=== PATIENT | male | born 1950 | race Caucasian/White ===

== ENCOUNTER → 2019-05-18 | Outpatient (CLI) | payer MEDICARE ==
--- NOTE | 2019-05-18 13:12 | Diagnostic Imaging Report ---
Renal ultrasound, 05/18/2019. History: Acute renal failure. Discussion: Transverse and longitudinal images of the kidneys were obtained demonstrating normal renal sizes and echogenicities. There is no evidence of hydronephrosis, mass, or shadowing renal calculus. 4 to 5 mm nonshadowing echogenic foci are present within the central portions of both kidneys. Oval anechoic structures are present bilaterally, one in the lateral aspect of the right kidney measuring 2.1 x 1.9 x 2.5 cm and 2 in the left upper pole measuring 2.6 x 1.5 x 1.7 cm and 1.4 x 1.1 x 1.4 cm. The right kidney measures 10.2 cm and the left kidney measures 10.9 cm in length. Renal cortex measures 1.5 and 2.1 cm respectively. The urinary bladder is unremarkable. Bilateral ureteral jets are identified. Bladder volume measures 40 mL. There is no evidence of free fluid. IMPRESSION: 1. Bilateral simple renal cysts. 2. Possible small nonobstructing bilateral renal calculi. Signed by: Edgar Vaughan on 05/18/2019 1:08 PM
== END ==
LOC: US 12:14
PROVIDERS: ATTEND Urology
DX: R39.14 Feeling of incomplete bladder emptying (principal); N17.9 Acute kidney failure, unspecified
CPT/HCPCS: 76770

== ENCOUNTER → 2019-07-12 | Outpatient (CLI) | payer MEDICARE ==
--- NOTE | 2019-07-12 14:57 | Diagnostic Imaging Report ---
Abdomen, 1 view. History: Renal calculus. Findings: Air is scattered throughout nondilated small and large bowel. A 5 mm calcific density projected over the lower pole of the left kidney. Surgical clips are noted in the right lower quadrant abdomen. Advanced degenerative changes are noted throughout the lumbar spine. IMPRESSION: Non-specific bowel gas pattern. Possible small left renal callus. Signed by: Edgar Vaughan on 07/12/2019 2:54 PM
== END ==
LOC: RAD 13:22
PROVIDERS: ATTEND Urology
DX: N20.0 Calculus of kidney (principal)
CPT/HCPCS: 74018

== ENCOUNTER → 2019-07-27 | Outpatient (CLI) | payer MEDICARE ==
--- NOTE | 2019-07-27 10:04 | Diagnostic Imaging Report ---
EXAMINATION: CT of the abdomen and pelvis without contrast. TECHNIQUE: Spiral CT images of the abdomen and pelvis were performed from the lung bases to the lesser trochanters. No intravenous contrast was given per renal stone protocol. Coronal and sagittal reformatted images were obtained. COMPARISON: Abdominal x-ray 07/12/2019 CLINICAL HISTORY:Renal calculus DISCUSSION: ABSENCE OF INTRAVENOUS CONTRAST DECREASES SENSITIVITY FOR DETECTION OF FOCAL LESIONS AND VASCULAR PATHOLOGY. ABDOMEN/PELVIS: LOWER THORAX: Groundglass and reticular opacities in the dependent lower lobes compatible with subsegmental atelectasis or mild age-related fibrotic changes. HEPATOBILIARY:No focal hepatic lesions. No biliary ductal dilation. The gallbladder is normal. SPLEEN: No splenomegaly. PANCREAS: No focal masses or ductal dilatation. ADRENALS: No adrenal nodules. KIDNEYS/URETERS: Bilateral renal cysts are identified as seen on comparison renal ultrasound. 3 mm right renal cortical calcification. 5-6 mm nonobstructing left lower pole calculus confirms plain radiographic finding. Additional punctate calculus in the interpolar left kidney seen on series 3 image 64. No hydronephrosis. No ureteral or bladder calculi. PELVIC ORGANS/BLADDER: Urinary bladder, prostate, and seminal vesicles appear normal. PERITONEUM/RETROPERITONEUM: No free air or fluid. LYMPH NODES: No pelvic sidewall, retroperitoneal, or mesenteric lymphadenopathy. VESSELS: Limited evaluation without intravenous contrast. Atherosclerotic calcification of the abdominal aorta, iliac arterial systems, and major visceral branches without aneurysmal dilatation. GI TRACT: The large bowel shows no distention or wall thickening. Gas and fecal material are noted throughout. Postsurgical changes of appendectomy. The stomach is collapsed with prominent rugal folds. No small bowel dilatation to suggest obstruction. BONES AND SOFT TISSUES: Disproportionate atrophy/fatty replacement of the left gluteus musculature in the setting of advanced multilevel degenerative disc changes and facet arthropathy of the lumbar spine. IMPRESSION: Nonobstructing left renal calculi measuring up to 5-6 mm. Bilateral renal cysts as seen on comparison ultrasound. Atherosclerotic vascular disease. Signed by: Dr. Janes Chavira M.D. on 07/27/2019 10:01 AM
== END ==
LOC: CT 08:21
PROVIDERS: ATTEND Urology
DX: N20.0 Calculus of kidney (principal)
CPT/HCPCS: 74176

== ENCOUNTER → 2019-09-29 | Day surgery (SDC) | payer MEDICARE ==
[2019-09-27 12:27] LABS: BASOPHILS # (AUTO) 0.1 (0.0-0.1); BASOPHILS % 0.5 % (0.0-1.0); EOSINOPHILS # (AUTO) 0.1 (0.0-0.4); EOSINOPHILS % 1.1 % (0.0-6.0); HEMATOCRIT 53.6 % (38.2-49.6); HEMOGLOBIN 17.7 g/dL (14.0-18.0); LYMPHOCYTES # (AUTO) 2.3 (1.0-3.2); LYMPHOCYTES % 23.1 % (18.0-39.1); MEAN CORPUSCULAR HEMOGLOBIN 29.2 pg (28-32); MEAN CORPUSCULAR VOLUME 88.4 fL (81-99); MONOCYTES # (AUTO) 0.9 (0.2-0.8); MONOCYTES % 8.4 % (4.4-11.3); NEUTROPHILS # (AUTO) 6.7 (2.1-6.9); NEUTROPHILS % 66.1 % (38.7-80.0); PLATELET COUNT 225 x10e3/uL (140-360); RED BLOOD COUNT 6.06 x10e6/uL (4.3-5.7); RED CELL DISTRIBUTION WIDTH 17.5 % (11.7-14.4)
[2019-09-27 12:57] LABS: ANION GAP 18.2 mmol/L (8-16); BLOOD UREA NITROGEN 17 mg/dL (7-26); BUN/CREATININE RATIO 15 (6-25); CALCIUM 9.3 mg/dL (8.4-10.2); CARBON DIOXIDE 19 mmol/L (22-29); CHLORIDE 104 mmol/L (98-107); CREATININE, SERUM 1.14 mg/dL (0.72-1.25); EST GLOMERULAR FILTRATION RATE > 60 ML/MIN (60-); GLUCOSE 90 mg/dL (74-118); POTASSIUM 4.2 mmol/L (3.5-5.1); SODIUM 137 mmol/L (136-145)
--- NOTE | 2019-09-27 13:09 | Diagnostic Imaging Report ---
EXAMINATION: CHEST 2 VIEWS INDICATION: ^PREOP ^20190927 ^1220 COMPARISON: None FINDINGS: PA and lateral views TUBES and LINES: None. LUNGS: Lungs are well inflated. 6 mm nodule of the right midlung consistent with a calcified granuloma. The lungs are otherwise clear. There is no evidence of pneumonia or pulmonary edema. PLEURA: No pleural effusion or pneumothorax. HEART AND MEDIASTINUM: The cardiomediastinal silhouette is unremarkable. BONES AND SOFT TISSUES: No acute osseous lesion. Soft tissues are unremarkable. UPPER ABDOMEN: No free air under the diaphragm. IMPRESSION: No acute thoracic radiographic abnormality. Signed by: Micha Rivera MD on 09/27/2019 1:07 PM
--- NOTE | 2019-09-27 13:10 | Diagnostic Imaging Report ---
EXAM: Abdomen Radiograph 1 View(s) INDICATION: ^PREOP ^20190927 ^1220 COMPARISON: None FINDINGS: The bowel gas pattern is nonspecific. 5 mm calculus of the left renal lower pole. Advanced lobar spine degenerative change. Right hemipelvis surgical clips. IMPRESSION: 5 mm left renal lower pole calculus. Nonobstructive bowel gas pattern. Signed by: Micha Rivera MD on 09/27/2019 1:08 PM
[~2019-09-29] MED LIST: ALEVE220 M1 PO; B&O 60MG R/S 60 MG SUPP PR ONE; CEFTRIAXONE SOD 1 GM/NS 50 ML 50 ML IV ONE; DEXAMETHASONE SOD PHOS INJ 4 MG/ML VIAL ONE; FENTANYL CITRATE/PF 100MCG/2 ML INJ ONE; GABAPENTIN300 MG PO; IOPAMIDOL 300MG/ML 50ML INFUS..BTL IV ONE; LIDOCAINE HCL 2% LOCAL INJ 5 ML SDV VIAL INJ ONE; LISINOPRIL-HCT1 EAC1 PO; MIDAZOLAM HCL 2 MG/2 ML VIAL ONE; ONDANSETRON HCL INJ 2MG/ML 2ML 2 MG/ML VIAL ONE; PROPOFOL IV EMULSION 10 MG/ML 20 ML VIAL ONE; SEVOFLURANE INHAL SOLN 250 ML PEN BTL ONE; TESTOSTERO100 MG/1 M IM; ULTRAM50 MG PO; ZETIA10 MG PO
--- OUTSIDE RECORDS SUMMARY | 2019-09-29 06:50 | XMS REPORT ---
Author [facility] Address Unknown Phone Unavailable Care Team Providers Care Ampoule Inspector Name Role Phone CARISA PILLAI Unavailable Unavailable Problems This patient has no known problems. Allergies, Adverse Reactions, Alerts This patient has no known allergies or adverse reactions. Medications This patient has no known medications. Results Test Description Test Time Test Comments Text Results Atomic Results Result Comments ABDOMEN-1VIEW ([facility]U) 2019-09-27 13:07:00 [place] [address] Patient Name: KATHRINE CASAS MR #: [id number] : 1950 Age/Sex: 68/M Req #: [id number] Adm Physician: Ordered by: CARISA PILLAI MD Report #: [id number] Location: OR Room/Bed: Procedure: [id number] DX/ABDOMEN-1VIEW ([facility]) Exam Date: 09/27/19 Exam Time: 1220 REPORT STATUS: Signed EXAM: Abdomen Radiograph 1 View(s) INDICATION: PREOP [id number] 122 COMPARISON: None FINDINGS: The bowel gas pattern is nonspecific. 5 mm calculus of the left renal lower pole. Advanced lobar spine degenerative change. Right hemipelvis surgical clips. IMPRESSION: 5 mm left renal lower pole calculus. Nonobstructive bowel gas pattern. Signed by: Richardson Sutton MD on 09/27/2019 1:08 PM Dictated By: RICHARDSON SUTTON MD 1308 Transcribed By: ROCHELLE on 09/27/191307 COPY TO: CARISA PILLAI MD CHEST 2 VIEWS 2019-09-27 13:06:00 [facility] [address] [address] Patient Name: KATHRINE CASAS MR #: [id number] : 1950 Age/Sex: 68/M Req #: [id number] Adm Physician: Ordered by: CARISA PILLAI MD Report #: [id number] Location: OR Room/Bed: Procedure: [id number] DX/CHEST 2 VIEWS Exam Date: 09/27/19 Exam Time: 1220 REPORT STATUS: Signed EXAMINATION: CHEST 2 VIEWS INDICATION: PREOP [id number] 1220 COMPARISON: None FINDINGS: PA and lateral views TUBES and LINES: None. LUNGS: Lungs are well inflated. 6 mm nodule of the right midlung consistent with a calcified granuloma. The lungs are otherwise clear. There is no evidence of pneumonia or pulmonary edema. PLEURA: No pleural effusion or pneumothorax. HEART AND MEDIASTINUM: The cardiomediastinal silhouette is unremarkable. BONES AND SOFT TISSUES: No acute osseous lesion. Soft tissues are unremarkable. UPPER ABDOMEN: No free air under the diaphragm. IMPRESSION: No acute thoracic radiographic abnormality. Signed by: Richardson Sutton MD on 09/27/2019 1:07 PM Dictated By: RICHARDSON SUTTON MD 1307 Transcribed By: ROCHELLE on 09/27/19 130 COPY TO: CARISA PILLAI MD CT ABDOMEN/PELVIS WO 2019-07-27 09:52:00 [facility] [address] [address] Patient Name: KATHRINE CASAS MR #: [id number] : 1950 Age/Sex: 68/M Req #: [id number] Adm Physician: Ordered by: CARISA PILLAI MD Report #: [id number] Location: CT Room/Bed: Procedure: [id number] CT/CT ABDOMEN/PELVIS WO Exam Date: 07/27/19 Exam Time: 917 REPORT STATUS: Signed EXAMINATION: CT of the abdomen and pelvis without contrast. TECHNIQUE: Spiral CT images of the abdomen and pelvis were performed from the lung bases to the lesser trochanters. No intravenous contrast was given per renal stone protocol. Coronal and sagittal reformatted images were obtained. COMPARISON: Abdominal x-ray 07/12/2019 CLINICAL HISTORY:Renal calculus DISCUSSION: ABSENCE OF INTRAVENOUS CONTRAST DECREASES SENSITIVITY FOR DETECTION OF FOCAL LESIONS AND VASCULAR PATHOLOGY. ABDOMEN/PELVIS: LOWER THORAX: Groundglass and reticular opacities in the dependent lower lobes compatible with subsegmental atelectasis or mild age- related fibrotic changes. HEPATOBILIARY:No focal hepatic lesions. No biliary ductal dilation. The gallbladder is normal. SPLEEN: No splenomegaly. PANCREAS: No focal masses or ductal dilatation. ADRENALS: No adrenal nodules. KIDNEYS/URETERS: Bilateral renal cysts are identified as seen on comparison renal ultrasound. 3 mm right renal cortical calcification. 5-6 mm nonobstructing left lower pole calculus confirms plain radiographic finding. Additional punctate calculus in the interpolar left kidney seen on series 3 image 64. No hydronephrosis. No ureteral or bladder calculi. PELVIC ORGANS/BLADDER: Urinary bladder, prostate, and seminal vesicles appear normal. PERITONEUM/RETROPERITONEUM: No free air or fluid. LYMPH NODES: No pelvic sidewall, retroperitoneal, or mesenteric lymphadenopathy. VESSELS: Limited evaluation without intravenous contrast. Atherosclerotic calcification of the abdominal aorta, iliac arterial systems, and major visceral branches without aneurysmal dilatation. GI TRACT: The large bowel shows no distention or wall thickening. Gas and fecal material are noted throughout. Postsurgical changes of appendectomy. The stomach is collapsed with prominent rugal folds. No small bowel dilatation to suggest obstruction. BONES AND SOFT TISSUES: Disproportionate atrophy/fatty replacement of the left gluteus musculature in the setting of advanced multilevel degenerative disc changes and facet arthropathy of the lumbar spine. IMPRESSION: Nonobstructing left renal calculi measuring up to 5-6 mm. Bilateral renal cysts as seen on comparison ultrasound. Atherosclerotic vascular disease. Signed by: Dr. Zhanna Sosa M.D. on 07/27/2019 10:01 AM Dictated By: ZHANNA SOSA MD 1001 Transcribed By: ROCHELLE on 07/27/19 1001 COPY TO: CARISA PILLAI MD ABDOMEN-1VIEW (KUB) 2019-07-12 14:52:00 [place] [address] Patient Name: KATHRINE CASAS MR #: [id number] : 1950 Age/Sex: 68/M Req #: [id number] Adm Physician: Ordered by: CARISA PILLAI MD Report #: [id number] Location: [facility] Room/Bed: Procedure: [id number] DX/ABDOMEN-1VIEW (KUB) Exam Date: 07/12/19 Exam Time: 1355 REPORT STATUS: Signed Abdomen, 1 view. History: Renal calculus. Findings: Air is scattered throughout nondilated small and large bowel. A 5 mm calcific density projected over the lower pole of the left kidney. Surgical clips are noted in the right lower quadrant abdomen. Advanced degenerative changes are noted throughout the lumbar spine. IMPRESSION: Non- specific bowel gas pattern. Possible small left renal callus. Signed by: Edgar Vaughan on 07/12/2019 2:54 PM Dictated By: EDGAR VAUGHAN MD [id number] Transcribed By: ROCHELLE on 07/12/19 8407 COPY TO: CARISA PILLAI MD US RENAL RETROPERITONEAL COMP 2019-05-18 13:06:00 [place] [address] Patient Name: KATHRINE CASAS MR #: [id number] : 1950 Age/Sex: 68/M Req #: [id number] Adm Physician: Ordered by: CARISA PILLAI MD Report #: [id number] Location: US Room/Bed: Procedure: [id number] US/US RENAL RETROPERITONEAL COMP Exam Date: 05/18/19 Exam Time: 1235 REPORT STATUS: Signed Renal ultrasound, 05/18/2019. History: [place] renal failure. Discussion: Transverse and longitudinal images of the kidneys were obtained demonstrating normal renal sizes and echogenicities. There is no evidence of hydronephrosis, mass, or shadowing renal calculus. 4 to 5 mm nonshadowing echogenic foci are present within the central portions of both kidneys. Oval anechoic structures are present bilaterally, one in the lateral aspect of the right kidney measuring 2.1 x 1.9 x 2.5 cm and 2 in the left upper pole measuring 2.6 x 1.5 x 1.7 cm and 1.4 x 1.1 x 1.4 cm. The right kidney measures 10.2 cm and the left kidney measures 10.9 cm in length. Renal cortex measures 1.5 and 2.1 cm respectively. The urinary bladder is unremarkable. Bilateral ureteral jets are identified. Bladder volume measures 40 mL. There is no evidence of free fluid. IMPRESSION: 1. Bilateral simple renal cysts. 2. Possible small nonobstructing bilateral renal calculi. Signed by: Edgar Vaughan on 05/18/2019 1:08 PM Dictated By: EDGAR VAUGHAN MD 1307 Transcribed By: ROCHELLE on 05/18/19 1309 COPY TO: CARISA PILLAI MD
--- NOTE | 2019-09-29 07:10 | NUR ---
SPIRITUAL CARE - Pre-Surgery Assessment: Pt in bed. Pt's at bedside. Pt reported supportive attention from family and friends. Intervention: I provided pastoral presence, hospitality, and sympathetic listening. I acquainted pt with availability of mechanical system technician while hospitalized. Outcome: Pt expressed appreciation for visit. No need for follow up indicated at this time. JOHN Griggslain Spiritual Care Department O: [phone] Pager: [phone] ([phone] number calling from)
[2019-09-29 10:20] VITALS: BP 137/79
--- NOTE | 2019-09-29 16:43 | Operative Report ---
DATE OF PROCEDURE: 09/29/2019 SURGEON: Iam Lui MD PREOPERATIVE DIAGNOSES: 1. Left nephrolithiasis. 2. Chronic renal insufficiency. POSTOPERATIVE DIAGNOSES: 1. Left nephrolithiasis. 2. Chronic renal insufficiency. 3. Urethral stricture disease at the bulbar region and at the level of the external urinary sphincter. OPERATIONS PERFORMED: None of these were staged procedures as part of multi-staged and multi-step process in managing urolithiasis. 1. Left-sided extracorporeal shockwave lithotripsy (separately performed for the left nephrolithiasis, done with separate approach). 2. Cystourethroscopy with calibration and dilation of urethral stricture (separate performed for the diagnosis of stricture). 3. Cystourethroscopy with bilateral ureteral catheterization and retrograde ureteropyelography (separate performed for the renal insufficiency). 4. Interpretation of retrograde ureteropyelography. ANESTHESIA: General. COMPLICATIONS: None. CLINICAL SUMMARY: Ross Pedroza is a 68-year-old man with the above preoperative diagnoses. He is brought for the above procedures he is aware of the risks of bleeding, infection, injury to adjacent structures, need for additional procedures and elected to proceed. OPERATIVE PROCEDURE IN DETAIL: Informed consent was verified. Ross Pedroza was properly identified, taken to the operating room, placed on the lithotripsy table in supine position. Anesthesia was uneventfully begun. The patient's left nephrolithiasis was localized with biplanar fluoroscopy. Total of 3000 shocks were delivered with excellent fragmentation. The patient was carefully gently repositioned in dorsal lithotomy position with all pressure points well padded. His genitalia were prepared and draped in usual sterile fashion. The 22.5-Polish cystoscope sheath with the visual obturator in place was atraumatically inserted the patient's urethra. It was guided down the distal urethra, which was significant for some wide caliber bands without any obstruction, at the bulbar region just outside the external urinary sphincter, there was a short stricture that probably calibrated to approximately 18-Polish in size. It was dilated to 22.5-Polish with the cystoscope sheath with the visual obturator in place. We then guided it through the external urinary sphincter, which was also narrowed and we dilated that to 22.5-Polish in size. We then went through the prostate bed, was significant for blanched mucosa following radiotherapy and an elevated bladder neck to the median bar. We entered the patient's bladder. Panendoscopy revealed grade 1 trabeculations, but no tumors, no stones, no diverticula. No suspicious mucosal lesions were identified. An 8-Polish catheter was used to cannulate each ureter and retrograde ureteropyelograms were performed. Interpretation of retrograde ureteropyelography: Contrast was instilled in retrograde fashion bilaterally. On the left hand side, there were filling defects in the lower pole calyx, corresponding to stone fragments and blood clots from the lithotripsy. Otherwise, bilaterally, there were other stones, no other filling defects. No suspicious mucosal lesions. The calyces were sharp and delicate and we noted unobstructed drainage bilaterally fluoroscopically. The patient's bladder was drained. Cystoscope was withdrawn. Belladonna and opium suppository were placed and the patient was uneventfully reversed from anesthesia, taken to recovery room in stable condition. Explicit postop instructions were given. We will follow the patient up in the office. Iam Lui MD OH/MODL /[id number] cc: Ella Talley DO
== END | disposition home or self-care (01) ==
LOC: OR 06:33
PROVIDERS: ATTEND Urology
DX: N20.0 Calculus of kidney (principal); N18.9 Chronic kidney disease, unspecified; N35.912 Unspecified bulbous urethral stricture, male; Z01.812 Encounter for preprocedural laboratory examination; Z01.810 Encounter for preprocedural cardiovascular examination; Z01.811 Encounter for preprocedural respiratory examination; N40.1 Benign prostatic hyperplasia with lower urinary tract symptoms; C61 Malignant neoplasm of prostate; R39.14 Feeling of incomplete bladder emptying; I10 Essential (primary) hypertension; Z87.891 Personal history of nicotine dependence; G47.33 Obstructive sleep apnea (adult) (pediatric); Z01.818 Encounter for other preprocedural examination
CPT/HCPCS: 36415; 50590; 52281; 71046; 74018; 74420; 80048; 85025; 93005; J0696; J1100; J2001; J2250; J2405; J2704; J3010; Q9967

== ENCOUNTER → 2019-10-26 | Outpatient (CLI) | payer MEDICARE ==
[~2019-10-26] MED LIST changes: -B&O 60MG R/S 60 MG SUPP PR ONE; -CEFTRIAXONE SOD 1 GM/NS 50 ML 50 ML IV ONE; -DEXAMETHASONE SOD PHOS INJ 4 MG/ML VIAL ONE; -FENTANYL CITRATE/PF 100MCG/2 ML INJ ONE; -IOPAMIDOL 300MG/ML 50ML INFUS..BTL IV ONE; -LIDOCAINE HCL 2% LOCAL INJ 5 ML SDV VIAL INJ ONE; -MIDAZOLAM HCL 2 MG/2 ML VIAL ONE; -ONDANSETRON HCL INJ 2MG/ML 2ML 2 MG/ML VIAL ONE; -PROPOFOL IV EMULSION 10 MG/ML 20 ML VIAL ONE; -SEVOFLURANE INHAL SOLN 250 ML PEN BTL ONE
--- NOTE | 2019-10-26 11:01 | Diagnostic Imaging Report ---
Exam: KUB - 2 views Indication: Renal calculus Comparison: KUB of 09/27/2019 Findings: Cluster of calculi at the left kidney lower pole appears slightly increased compared to 09/27/2019, measuring up to 7 mm. No radiographically apparent right renal calculi. Nonobstructive bowel gas pattern. No free air. No acute osseous injury. Degenerative changes of the spine. Phleboliths in the pelvis. Impression: Left lower pole cluster of calculi appear slightly increased, measuring up to 7 mm. Signed by: Madelaine Rudd MD on 10/26/2019 10:58 AM
== END ==
LOC: RAD 10:16
PROVIDERS: ATTEND Urology
DX: N20.0 Calculus of kidney (principal)
CPT/HCPCS: 74018

== ENCOUNTER → 2020-01-12 | Outpatient (CLI) | payer MEDICARE ==
--- NOTE | 2020-01-12 13:41 | Diagnostic Imaging Report ---
Exam: KUB - 2 views Indication: Renal calculus Comparison: KUB 10/26/2019 Findings: Clustered left lower pole renal calculi measure up to 6 mm, not significantly changed from prior studies. No new radiographically apparent urinary calculi. Surgical clips in the right lower abdomen. Nonobstructive bowel gas pattern. No free air. No acute osseous injury. Degenerative changes of the visualized spine and both hip joints. Impression: Unchanged left lower pole renal calculi. Signed by: Madelaine Rudd MD on 01/12/2020 1:38 PM
== END ==
LOC: RAD 12:34
PROVIDERS: ATTEND Urology
DX: N20.0 Calculus of kidney (principal)
CPT/HCPCS: 74018

== ENCOUNTER → 2020-07-16 | Outpatient (CLI) | payer MEDICARE ==
--- NOTE | 2020-07-16 12:01 | Diagnostic Imaging Report ---
Exam: KUB - 2 views Indication: Renal calculus Comparison: KUB 01/12/2020 Findings: Clustered left lower pole renal calculi measure up to 7 mm. No new radiographically apparent urinary calculi. Surgical clips in the right lower abdomen. Nonobstructive bowel gas pattern. No free air. No acute osseous injury. Degenerative changes of the lower lumbar spine and both hip joints. Impression: Clustered left lower pole renal calculi measure up to 7 mm. Signed by: Madelaine Rudd MD on 07/16/2020 11:57 AM
== END ==
LOC: RAD 10:35
PROVIDERS: ATTEND Urology
DX: N20.0 Calculus of kidney (principal)
CPT/HCPCS: 74018

== ENCOUNTER → 2020-07-22 | Outpatient (CLI) | payer MEDICARE | LOC: CT 16:20 | PROVIDERS: ATTEND Urology | DX: N20.0 Calculus of kidney (principal) | CPT/HCPCS: 74176 ==

== ENCOUNTER → 2020-08-08 | Day surgery (SDC) | payer MEDICARE ==
[2020-08-06 08:36] LABS: BASOPHILS # (AUTO) 0.1 (0.0-0.1); BASOPHILS % 0.7 % (0.0-1.0); EOSINOPHILS # (AUTO) 0.2 (0.0-0.4); EOSINOPHILS % 2.1 % (0.0-6.0); HEMATOCRIT 49.9 % (38.2-49.6); HEMOGLOBIN 16.5 g/dL (14.0-18.0); LYMPHOCYTES % 27.4 % (18.0-39.1); MEAN CORPUSCULAR HEMOGLOBIN 29.6 pg (28-32); MEAN CORPUSCULAR HGB CONC 33.1 g/dL (31-35); MEAN CORPUSCULAR VOLUME 89.6 fL (81-99); MONOCYTES # (AUTO) 0.7 (0.2-0.8); MONOCYTES % 9.7 % (4.4-11.3); NEUTROPHILS # (AUTO) 4.3 (2.1-6.9); NEUTROPHILS % 59.5 % (38.7-80.0); PLATELET COUNT 195 x10e3/uL (140-360); RED BLOOD COUNT 5.57 x10e6/uL (4.3-5.7); RED CELL DISTRIBUTION WIDTH 14.1 % (11.7-14.4)
[2020-08-06 09:27] LABS: ALBUMIN 3.9 g/dL (3.5-5.0); ALBUMIN/GLOBULIN RATIO 1.1 (0.8-2.0); ANION GAP 13.7 mmol/L (8-16); CALCIUM 9.1 mg/dL (8.4-10.2); CREATININE, SERUM 1.39 mg/dL (0.72-1.25); POTASSIUM 4.7 mmol/L (3.5-5.1)
[~2020-08-08] MED LIST changes: +B&O 60MG R/S 60 MG SUPP PR ONE; +CEFTRIAXONE SOD 1 GM/NS 50 ML 50 ML IV ONE; +EPHEDRINE SULFATE INJ 50 MG/ML VIAL ONE; +FENTANYL CITRATE/PF 100MCG/2 ML INJ ONE; +FLOMAX0.4 MG PO; +IOPAMIDOL 300MG/ML 50ML INFUS..BTL IV ONE; +LIDOCAINE HCL 2% LOCAL INJ 5 ML SDV VIAL INJ ONE; +MIDAZOLAM HCL 2 MG/2 ML VIAL ONE; +ONDANSETRON HCL INJ 2MG/ML 2ML 2 MG/ML VIAL ONE; +PROPOFOL IV EMULSION 10 MG/ML 20 ML VIAL ONE; +SEVOFLURANE INHAL SOLN 250 ML PEN BTL ONE
[2020-08-08 09:30] VITALS: BP 118/65
== END | disposition home or self-care (01) ==
LOC: OR 05:18
PROVIDERS: ATTEND Urology
DX: N20.0 Calculus of kidney (principal); I12.9 Hypertensive chronic kidney disease with stage 1 through stage 4 chronic kidney disease, or unspecified chronic kidney disease; N18.9 Chronic kidney disease, unspecified; N40.0 Benign prostatic hyperplasia without lower urinary tract symptoms; N32.89 Other specified disorders of bladder; G47.33 Obstructive sleep apnea (adult) (pediatric); Z01.810 Encounter for preprocedural cardiovascular examination; Z01.812 Encounter for preprocedural laboratory examination; Z01.818 Encounter for other preprocedural examination; Z20.828 Contact with and (suspected) exposure to other viral communicable diseases; M19.90 Unspecified osteoarthritis, unspecified site; Z85.46 Personal history of malignant neoplasm of prostate; Z87.891 Personal history of nicotine dependence
CPT/HCPCS: 36415; 50590; 74018; 80053; 84550; 85025; 93005; C1758; J0696; J2001; J2250; J2405; J2704; J3010; Q9967; U0002

== ENCOUNTER → 2020-09-03 | Outpatient (CLI) | payer MEDICARE ==
[~2020-09-03] MED LIST changes: -B&O 60MG R/S 60 MG SUPP PR ONE; -CEFTRIAXONE SOD 1 GM/NS 50 ML 50 ML IV ONE; -EPHEDRINE SULFATE INJ 50 MG/ML VIAL ONE; -FENTANYL CITRATE/PF 100MCG/2 ML INJ ONE; -IOPAMIDOL 300MG/ML 50ML INFUS..BTL IV ONE; -LIDOCAINE HCL 2% LOCAL INJ 5 ML SDV VIAL INJ ONE; -MIDAZOLAM HCL 2 MG/2 ML VIAL ONE; -ONDANSETRON HCL INJ 2MG/ML 2ML 2 MG/ML VIAL ONE; -PROPOFOL IV EMULSION 10 MG/ML 20 ML VIAL ONE; -SEVOFLURANE INHAL SOLN 250 ML PEN BTL ONE
== END ==
LOC: RAD 13:17
PROVIDERS: ATTEND Urology
DX: N20.0 Calculus of kidney (principal)
CPT/HCPCS: 74018

== ENCOUNTER → 2021-04-02 | Outpatient (CLI) | payer MEDICARE | LOC: RAD 13:03 | PROVIDERS: ATTEND Internal Medicine | DX: R05 Cough (principal); Z86.16 Personal history of COVID-19 | CPT/HCPCS: 71046 ==

== ENCOUNTER → 2021-12-12 | Outpatient (CLI) | payer MEDICARE | LOC: RAD 09:54 | PROVIDERS: ATTEND Urology | DX: N20.0 Calculus of kidney (principal) | CPT/HCPCS: 74018 ==